=== PATIENT | male | born 1990 | race Asian ===

== ENCOUNTER 2021-08-06 11:23 | Emergency (ER) | payer OTHER ==
[~2021-08-06] VITALS: Ht 182.9 cm; Wt 113.4 kg
[2021-08-06 11:40] VITALS: TEMP 98
[2021-08-06 12:18] LABS: PLATELET COUNT 174 K/uL (142-355)
[2021-08-06 12:22] LABS: POTASSIUM 3.8 mmol/L (3.6-5.2)
[2021-08-06 14:03] VITALS: BP 118/72
== END 2021-08-06 14:05 | disposition home or self-care (01) ==
LOC: ED 11:23
PROVIDERS: Hospitalist
DX: A08.39 Other viral enteritis (principal); R11.2 Nausea with vomiting, unspecified; R19.7 Diarrhea, unspecified
CPT/HCPCS: 36415; 80053; 80320; 81000; 83690; 85027; 96360; 96374; 99284; J2405